=== PATIENT | female | born 1955 | race Caucasian/White ===

== ENCOUNTER 2017-09-24 10:18 | Outpatient (CLI) | payer BC ==
--- NOTE | 2017-09-24 11:57 | MRI ---
MRI OF THE LUMBAR SPINE WITHOUT CONTRAST: INDICATION: History of left foot numbness and right hand numbness for 1 week. COMPARISON: Radiographs of the lumbar spine dated 09/22/17. FINDINGS: There are 5 lumbar-type vertebrae. Bone marrow signal intensity appears within normal limits. The c onus is seen to terminate at approximately L1-L2. The visualized retroperitoneum and paravertebral s oft tissues appear within normal limits. At L5-S1, there is a broad-based disk bulge with a superimposed central to right paracentral disk pro trusion causing mild narrowing of the lateral recess on the right without definite impingement of the traversing right S1 nerve root. The broad-based bulge and facet degenerative change induce mild nabila ateral neural foraminal narrowing, right greater than left. At L4-5, there is a broad-based disk bulge with a superimposed right foraminal disk protrusion causin g mild bilateral neural foraminal narrowing, right greater than left. The protrusion does mildly zina row the right lateral recess without definite impingement of the traversing right L5 nerve root. At L3-4, there is a mild broad-based disk bulge without appreciable central canal or neural foraminal narrowing. At L2-3, there is no appreciable central canal or neural foraminal narrowing. At L1-L2: There is no appreciable central canal or neural foraminal narrowing. The visualized retroperitoneum and paravertebral soft tissues appear within normal limits. IMPRESSION: Mild spondylosis of the lumbar spine most pronounced at L4-5 and L5-S1 where there is lateral recess narrowing as detailed above. There is also mild neural foraminal narrowing as detailed above. POS: [facility]
== END 2017-09-24 10:19 | disposition home or self-care (01) ==
LOC: TBSIIMAG 10:18
PROVIDERS: ATTEND Family Medicine
DX: M47.27 Other spondylosis with radiculopathy, lumbosacral region (principal); M47.26 Other spondylosis with radiculopathy, lumbar region; M99.83 Other biomechanical lesions of lumbar region; R20.2 Paresthesia of skin
CPT/HCPCS: 72148